=== PATIENT | female | born 1990 ===

== ENCOUNTER → 2021-03-21 | Outpatient (CLI) | payer MEDICARE, BC ==
[2021-03-22 02:20] LABS: African American GFR (CKD) 141.8 (60.0-200.0); Albumin 4.2 g/dL (3.80-4.90); Albumin/Globulin Ratio 1.45 (1.60-3.17); Anion Gap 10.5 mmol/L (4.00-12.00); Calcium 10.3 mg/dL (8.7-10.3); Carbon Dioxide 26.5 mmol/L (21.6-31.8); Globulin 2.9 g/dL (1.6-3.3); Non-African American GFR(CKD) 122.3 (60.0-200.0); Potassium 5.1 mmol/L (3.5-5.5); Total Bilirubin 0.2 mg/dL (0.2-1.2); Total Protein 7.1 g/dL (6.2-8.2)
== END | disposition home or self-care (01) ==
LOC: LABWHC1 16:05
PROVIDERS: ATTEND Internal Medicine Gastroenterology
DX: K51.80 Other ulcerative colitis without complications (principal); R10.33 Periumbilical pain; K52.9 Noninfective gastroenteritis and colitis, unspecified; K62.5 Hemorrhage of anus and rectum; Z93.0 Tracheostomy status
CPT/HCPCS: 36415; 80053

== ENCOUNTER → 2021-04-11 | Outpatient (CLI) | payer MEDICARE, BC ==
[2021-04-11 15:55] LABS: HCT 40.4 % (37.2-46.3); HGB 12.4 g/dL (12.0-15.0); MCH 29.6 pg (27.0-32.0); MCHC 30.7 g/dL (32.0-37.0); MCV 96.4 fL (80.0-97.0); Mean Platelet Volume 10.9 fL (9.5-12.2); Platelet Count 516 X 10*3/uL (140-440); RBC 4.19 X 10*6/uL (4.10-5.20); RDW 14.1 % (11.5-14.5); WBC 17.01 X 10*3/uL (4.50-10.00)
[2021-04-11 18:55] LABS: % Iron Saturation 12.9 (12.00-45.00)
[2021-04-11 19:12] LABS: Ferritin 644.3 ng/mL (10.0-291.0)
== END | disposition home or self-care (01) ==
LOC: LABWHC1 08:54 → EEVIPCON 08:54
PROVIDERS: ATTEND Internal Medicine Gastroenterology
DX: K51.80 Other ulcerative colitis without complications (principal); K62.5 Hemorrhage of anus and rectum; K52.9 Noninfective gastroenteritis and colitis, unspecified; R74.02 Elevation of levels of lactic acid dehydrogenase [LDH]
CPT/HCPCS: 36415; 82728; 83540; 83550; 85027

== ENCOUNTER 2021-04-13 13:34 | Inpatient (IN) | payer MEDICARE, BC ==
[2021-04-13] MEDS ORDERED: SODIUM CHLORIDE 0.9% 500 ML 500 ML IV STA (14:07)
[2021-04-13] MEDS ORDERED: ONDANSETRON 4 MG/2 ML VIAL IVP STA (14:07)
[2021-04-13] MEDS ORDERED: PANTOPRAZOLE 40 MG/10 ML VIAL IVP STA (14:07)
--- NOTE | 2021-04-13 14:11 | ED ---
General Adult HPI - General Chief complaint: Abdominal Pain Stated complaint: abd pain Time Seen by Provider: 04/13/21 13:59 Source: patient, family, RN notes reviewed, old records reviewed Mode of arrival: ambulatory Limitations: no limitations - History of Present Illness Initial comments: 31-year-old female history of ulcerative colitis presenting with vomiting, diarrhea. Diarrhea is bloody. She had previously been on Humira and a long steroid taper. Yesterday she her prednisone was increased to 40 mg after a teleconference with her gastrologist out of [place]. Patient denies significant abdominal pain. She's had 2 episodes of vomiting just prior to arrival. An she's had diarrhea ongoing for some time. No Fever. - Related Data Allergies Allergy/AdvReac Type Severity Reaction Status Date / Time No Known Allergies Allergy Verified 04/13/21 13:56 Review of Systems ROS Statement: Those systems with pertinent positive or pertinent negative responses have been documented in the HPI. ROS Other: All systems not noted in ROS Statement are negative. Past Medical History Past Medical History: GERD/Reflux Additional Past Medical History / Comment(s): genetic facial abnormalities. colitis,chronic diarrhea,rectal bleeding,aspartate aminotransferase History of Any Multi-Drug Resistant Organisms: None Reported Additional Past Surgical History / Comment(s): tracheostomy,facial surgery, eye surgery Past Psychological History: No Psychological Hx Reported Smoking Status: Never smoker Past Alcohol Use History: None Reported Past Drug Use History: None Reported General Exam Limitations: no limitations General appearance: alert, in no apparent distress Head exam: Present: atraumatic Eye exam: Present: other (Left eye status post exoneration) ENT exam: Present: mucous membranes dry Neck exam: Present: normal inspection. Absent: tenderness, meningismus Respiratory exam: Present: normal lung sounds bilaterally. Absent: respiratory distress, wheezes Cardiovascular Exam: Present: normal rhythm, tachycardia GI/Abdominal exam: Present: soft. Absent: distended, tenderness Extremities exam: Present: normal inspection, normal capillary refill. Absent: pedal edema Neurological exam: Present: alert Skin exam: Present: warm, dry, intact. Absent: cyanosis, diaphoretic Course Vital Signs 04/13/21 04/13/21 04/13/21 13:50 14:27 15:37 Temperature 98.2 F Pulse Rate 119 H 112 H 111 H Respiratory 20 18 18 Rate Blood Pressure 115/82 109/82 107/62 O2 Sat by Pulse 100 97 99 Oximetry 04/13/21 04/13/21 16:00 17:13 Temperature Pulse Rate 106 H 108 H Respiratory 18 18 Rate Blood Pressure 110/73 109/74 O2 Sat by Pulse 98 98 Oximetry Medical Decision Making - Medical Decision Making 31-year-old female with ulcerative colitis presenting with vomiting diarrhea, and rectal bleeding. Patient is hemodynamically stable. She has no abdominal tenderness on exam. She had been started on oral steroids yesterday. She's given a dose of Solu-Medrol in the emergency department as well as symptomatic relief. She has a mild leukocytosis, stable hemoglobin, lactic acid 2.5. She will be admitted for IV hydration and IV steroids. Case discussed with Panfilo, will admit with GI consulted. - Lab Data Result diagrams: 04/13/21 14:15 04/13/21 14:15 Lab Results 04/13/21 04/13/21 04/13/21 Range/Units 14:15 14:15 14:15 WBC 14.0 H (3.8-10.6) k/uL RBC 4.24 (3.80-5.40) m/uL Hgb 12.7 (11.4-16.0) gm/dL Hct 38.5 (34.0-46.0) % MCV 90.7 (80.0-100.0) fL MCH 29.9 (25.0-35.0) pg MCHC 32.9 (31.0-37.0) g/dL RDW 15.2 (11.5-15.5) % Plt Count 519 H (150-450) k/uL MPV 7.4 Neutrophils % 73 % Lymphocytes % 12 % Monocytes % 4 % Eosinophils % 10 % Basophils % 1 % Neutrophils # 10.1 H (1.3-7.7) k/uL Lymphocytes # 1.7 (1.0-4.8) k/uL Monocytes # 0.5 (0-1.0) k/uL Eosinophils # 1.4 H (0-0.7) k/uL Basophils # 0.1 (0-0.2) k/uL PT 10.3 (9.0-12.0) sec INR 1.0 (<1.2) APTT 23.1 (22.0-30.0) sec Sodium (137-145) mmol/L Potassium (3.5-5.1) mmol/L Chloride (98-107) mmol/L Carbon Dioxide (22-30) mmol/L Anion Gap mmol/L BUN (7-17) mg/dL Creatinine (0.52-1.04) mg/dL Est GFR (CKD-EPI)AfAm (>60 ml/min/1.73 sqM) Est GFR (CKD-EPI)NonAf (>60 ml/min/1.73 sqM) Glucose (74-99) mg/dL Lactic Ac Sepsis Rflx Plasma Lactic Acid Joe (0.7-2.0) mmol/L Calcium (8.4-10.2) mg/dL Total Bilirubin (0.2-1.3) mg/dL AST (14-36) U/L ALT (4-34) U/L Alkaline Phosphatase (38-126) U/L Total Protein (6.3-8.2) g/dL Albumin (3.5-5.0) g/dL Amylase (30-110) U/L Lipase (23-300) U/L Urine Color Dark Yellow Urine Appearance Cloudy H (Clear) Urine pH 6.0 (5.0-8.0) Ur Specific [place] 1.028 (1.001-1.035) Urine Protein 1+ H (Negative) Urine Glucose (UA) Negative (Negative) Urine Ketones Trace H (Negative) Urine Blood Large H (Negative) Urine Nitrite Negative (Negative) Urine Bilirubin Negative (Negative) Urine Urobilinogen <2.0 (<2.0) mg/dL Ur Leukocyte Esterase Negative (Negative) Urine RBC >182 H (0-5) /hpf Urine WBC 2 (0-5) /hpf Ur Squamous Epith Cells 6 H (0-4) /hpf Calcium Oxalate Crystal Occasional H (None) /hpf Urine Mucus Many H (None) /hpf Urine HCG, Qual (Not Detectd) 04/13/21 04/13/21 04/13/21 Range/Units 14:15 14:15 14:15 WBC (3.8-10.6) k/uL RBC (3.80-5.40) m/uL Hgb (11.4-16.0) gm/dL Hct (34.0-46.0) % MCV (80.0-100.0) fL MCH (25.0-35.0) pg MCHC (31.0-37.0) g/dL RDW (11.5-15.5) % Plt Count (150-450) k/uL MPV Neutrophils % % Lymphocytes % % Monocytes % % Eosinophils % % Basophils % % Neutrophils # (1.3-7.7) k/uL Lymphocytes # (1.0-4.8) k/uL Monocytes # (0-1.0) k/uL Eosinophils # (0-0.7) k/uL Basophils # (0-0.2) k/uL PT (9.0-12.0) sec INR (<1.2) APTT (22.0-30.0) sec Sodium 140 (137-145) mmol/L Potassium 3.6 (3.5-5.1) mmol/L Chloride 101 (98-107) mmol/L Carbon Dioxide 27 (22-30) mmol/L Anion Gap 12 mmol/L BUN 13 (7-17) mg/dL Creatinine 0.68 (0.52-1.04) mg/dL Est GFR (CKD-EPI)AfAm >90 (>60 ml/min/1.73 sqM) Est GFR (CKD-EPI)NonAf >90 (>60 ml/min/1.73 sqM) Glucose 117 H (74-99) mg/dL Lactic Ac Sepsis Rflx Plasma Lactic Acid Joe 2.5 H* (0.7-2.0) mmol/L Calcium 9.9 (8.4-10.2) mg/dL Total Bilirubin 0.3 (0.2-1.3) mg/dL AST 40 H (14-36) U/L ALT 28 (4-34) U/L Alkaline Phosphatase 94 (38-126) U/L Total Protein 8.1 (6.3-8.2) g/dL Albumin 4.4 (3.5-5.0) g/dL Amylase 88 (30-110) U/L Lipase 308 H (23-300) U/L Urine Color Urine Appearance (Clear) Urine pH (5.0-8.0) Ur Specific [place] (1.001-1.035) Urine Protein (Negative) Urine Glucose (UA) (Negative) Urine Ketones (Negative) Urine Blood (Negative) Urine Nitrite (Negative) Urine Bilirubin (Negative) Urine Urobilinogen (<2.0) mg/dL Ur Leukocyte Esterase (Negative) Urine RBC (0-5) /hpf Urine WBC (0-5) /hpf Ur Squamous Epith Cells (0-4) /hpf Calcium Oxalate Crystal (None) /hpf Urine Mucus (None) /hpf Urine HCG, Qual Not Detected (Not Detectd) 04/13/21 Range/Units 14:52 WBC (3.8-10.6) k/uL RBC (3.80-5.40) m/uL Hgb (11.4-16.0) gm/dL Hct (34.0-46.0) % MCV (80.0-100.0) fL MCH (25.0-35.0) pg MCHC (31.0-37.0) g/dL RDW (11.5-15.5) % Plt Count (150-450) k/uL MPV Neutrophils % % Lymphocytes % % Monocytes % % Eosinophils % % Basophils % % Neutrophils # (1.3-7.7) k/uL Lymphocytes # (1.0-4.8) k/uL Monocytes # (0-1.0) k/uL Eosinophils # (0-0.7) k/uL Basophils # (0-0.2) k/uL PT (9.0-12.0) sec INR (<1.2) APTT (22.0-30.0) sec Sodium (137-145) mmol/L Potassium (3.5-5.1) mmol/L Chloride (98-107) mmol/L Carbon Dioxide (22-30) mmol/L Anion Gap mmol/L BUN (7-17) mg/dL Creatinine (0.52-1.04) mg/dL Est GFR (CKD-EPI)AfAm (>60 ml/min/1.73 sqM) Est GFR (CKD-EPI)NonAf (>60 ml/min/1.73 sqM) Glucose (74-99) mg/dL Lactic Ac Sepsis Rflx Y Plasma Lactic Acid Joe (0.7-2.0) mmol/L Calcium (8.4-10.2) mg/dL Total Bilirubin (0.2-1.3) mg/dL AST (14-36) U/L ALT (4-34) U/L Alkaline Phosphatase (38-126) U/L Total Protein (6.3-8.2) g/dL Albumin (3.5-5.0) g/dL Amylase (30-110) U/L Lipase (23-300) U/L Urine Color Urine Appearance (Clear) Urine pH (5.0-8.0) Ur Specific [place] (1.001-1.035) Urine Protein (Negative) Urine Glucose (UA) (Negative) Urine Ketones (Negative) Urine Blood (Negative) Urine Nitrite (Negative) Urine Bilirubin (Negative) Urine Urobilinogen (<2.0) mg/dL Ur Leukocyte Esterase (Negative) Urine RBC (0-5) /hpf Urine WBC (0-5) /hpf Ur Squamous Epith Cells (0-4) /hpf Calcium Oxalate Crystal (None) /hpf Urine Mucus (None) /hpf Urine HCG, Qual (Not Detectd) Disposition Clinical Impression: Nausea & vomiting, Diarrhea, Ulcerative colitis Disposition: ADMITTED IP TO THIS [facility] Condition: Stable Is patient prescribed a controlled substance at d/c from ED?: No Referrals: Nonstaff,Physician [Primary Care Provider] - 1-2 days Decision to Admit Reason: Admit from EC Decision Date: 04/13/21 Decision Time: 17:17
[2021-04-13 14:27] LABS: Basophils # (A) 0.1 k/uL (0-0.2); Basophils % (A) 1 %; Eosinophils # (A) 1.4 k/uL (0-0.7); Eosinophils % (A) 10 %; HCT 38.5 % (34.0-46.0); HGB 12.7 gm/dL (11.4-16.0); Lymphocytes # (A) 1.7 k/uL (1.0-4.8); Lymphocytes % (A) 12 %; MCH 29.9 pg (25.0-35.0); MCHC 32.9 g/dL (31.0-37.0); MCV 90.7 fL (80.0-100.0); Mean Platelet Volume 7.4; Monocytes # (A) 0.5 k/uL (0-1.0); Monocytes % (A) 4 %; Neutrophils # (A) 10.1 k/uL (1.3-7.7); Neutrophils % (A) 73 %; Platelet Count 519 k/uL (150-450); RBC 4.24 m/uL (3.80-5.40); RDW 15.2 % (11.5-15.5)
[2021-04-13 14:35] LABS: Partial Thromboplastin Time 23.1 sec (22.0-30.0); Prothrombin Time 10.3 sec (9.0-12.0)
[2021-04-13 14:37] LABS: ALT 28 U/L (4-34); AST 40 U/L (14-36); African American GFR (CKD) >90 (>60 ml/min/1.73 sqM); Albumin 4.4 g/dL (3.5-5.0); Alkaline Phosphatase 94 U/L (38-126); Amylase 88 U/L (30-110); Anion Gap 12 mmol/L; Blood Urea Nitrogen 13 mg/dL (7-17); Calcium 9.9 mg/dL (8.4-10.2); Carbon Dioxide 27 mmol/L (22-30); Chloride 101 mmol/L (98-107); Glucose 117 mg/dL (74-99); Lipase 308 U/L (23-300); Non-African American GFR(CKD) >90 (>60 ml/min/1.73 sqM); Potassium 3.6 mmol/L (3.5-5.1); Sodium 140 mmol/L (137-145); Total Bilirubin 0.3 mg/dL (0.2-1.3); Total Protein 8.1 g/dL (6.3-8.2)
[2021-04-13] MEDS ORDERED: methylPREDNISolone SOD SUCCI 125 MG/2 ML VIAL IV STA (16:28)
[2021-04-13 16:49] LABS: Appearance,Urine Cloudy (Clear); Bilirubin,Urine Negative (Negative); Blood,Urine Large (Negative); Calcium Oxalate Crystals,Urine Occasional /hpf; Color,Urine Dark Yellow; Glucose,Urine (UA) Negative (Negative); Ketones,Urine Trace (Negative); Leukocyte Esterase,Urine Negative (Negative); Mucus,Urine Many /hpf; Nitrite,Urine Negative (Negative); Protein,Urine 1+ (Negative); RBC,Urine >182 /hpf (0-5); Specific Gravity,Urine 1.028 (1.001-1.035); Squamous Epithelial Cell,Urine 6 /hpf (0-4); Urobilinogen,Urine <2.0 mg/dL (<2.0); WBC,Urine 2 /hpf (0-5)
[2021-04-13] MEDS ORDERED: MORPHINE SULFATE 2 MG/ML SYRINGE IV PRN (17:12)
[2021-04-13] MEDS ORDERED: ONDANSETRON 4 MG/2 ML VIAL IVP PRN (17:12)
[2021-04-13] MEDS ORDERED: NALOXONE 0.4 MG/ML 1 ML VIAL IV PRN (17:12)
[2021-04-13] MEDS ORDERED: ACETAMINOPHEN TAB 325 MG TAB PO PRN (17:12)
[2021-04-13] MEDS: SODIUM CHLORIDE 0.9% 1,000 ML IV SCH (18:39)
[2021-04-13] MEDS: methylPREDNISolone SOD SUCCI 40 MG/ML 1 ML VIAL IV SCH (23:20)
[2021-04-14 05:43] LABS: ALT 26 U/L (4-34); AST 38 U/L (14-36); African American GFR (CKD) >90 (>60 ml/min/1.73 sqM); Albumin 3.6 g/dL (3.5-5.0); Alkaline Phosphatase 90 U/L (38-126); Anion Gap 7 mmol/L; Blood Urea Nitrogen 12 mg/dL (7-17); Calcium 9.2 mg/dL (8.4-10.2); Carbon Dioxide 24 mmol/L (22-30); Chloride 108 mmol/L (98-107); Glucose 121 mg/dL (74-99); Non-African American GFR(CKD) >90 (>60 ml/min/1.73 sqM); Potassium 4.8 mmol/L (3.5-5.1); Sodium 139 mmol/L (137-145); Total Bilirubin 0.2 mg/dL (0.2-1.3); Total Protein 6.9 g/dL (6.3-8.2)
[2021-04-14 06:05] LABS: Basophils % (A) 0 %; Eosinophils % (A) 0 %; HCT 33.1 % (34.0-46.0); HGB 10.8 gm/dL (11.4-16.0); Hypochromasia Slight; Lymphocytes % (A) 7 %; MCH 30.6 pg (25.0-35.0); MCHC 32.8 g/dL (31.0-37.0); MCV 93.3 fL (80.0-100.0); Mean Platelet Volume 7.6; Monocytes # (A) 0.2 k/uL (0-1.0); Monocytes % (A) 1 %; Neutrophils # (A) 12.9 k/uL (1.3-7.7); Neutrophils % (A) 91 %; Platelet Count 433 k/uL (150-450); RBC 3.55 m/uL (3.80-5.40); RDW 14.9 % (11.5-15.5); WBC 14.2 k/uL (3.8-10.6)
[2021-04-14] MEDS: methylPREDNISolone SOD SUCCI 40 MG/ML 1 ML VIAL IV SCH ×3 (07:27→23:38)
[2021-04-14] MEDS: SODIUM CHLORIDE 0.9% 1,000 ML IV SCH (12:29)
--- NOTE | 2021-04-14 12:42 | P.CONS ---
History of Present Illness - Reason for Consult Consult date: 04/14/21 Ulcerative colitis Requesting physician: Geovani Donohue - Chief Complaint Diarrhea, nausea and vomiting - History of Present Illness 31-year-old female with a medical history significant for multiple surgeries on the lower jaw and tracheostomy placement, and recent diagnosis of ulcerative colitis who presented with vomiting and diarrhea. The patient had been having symptoms of diarrhea since of last year. She underwent colonoscopy in [place] her primary residence in October and was diagnosed with ulcerative colitis. Her guardians are unsure of the extent the disease. The patient was started on Humira therapy in November which she is taking every 2 weeks. She was also given azathioprine was unable to tolerate it due to elevation in her liver enzymes. The patient has had ongoing symptoms since beginning of the year with the only improvement when she was on steroid therapy. Recently she had adalimumab levels drawn which were within normal range and with testing negative for antibodies to the drug. She denies having approximately 10 bowel movements daily with blood noted with the bowel movements. She has also been having some associated abdominal pain and developed vomiting prior to presentation. Laboratory evaluation significant for WBC 14.2, hemoglobin 10.8, platelet count 433,000, total bilirubin 0.2, alkaline phosphatase 90, AST 38 and ALT 26. Review of Systems REVIEW OF SYSTEMS: CONSTITUTIONAL: Denies any fevers, chills, weight change or fatigue. CARDIOVASCULAR: Denies any chest pain, palpitations high or low blood pressures RESPIRATORY: Denies any shortness of breath, hemoptysis or cough. GENITOURINARY: No dysuria or hematuria. MUSCULOSKELETAL: No weakness reported. SKIN: Denies any new rashes or lesions, jaundice or pallor. PSYCHIATRIC: Denies any depression or anxiety. NEUROLOGY: Denies headache, denies any new focal deficits. EARS/NOSE/THROAT: No recent hearing change, congestion, nasal discharge or sore throat, she does have a tracheostomy. EYES: No pain in eyes, discharge or change in vision. GASTROINTESTINAL: As per HPI. Past Medical History Past Medical History: GERD/Reflux Additional Past Medical History / Comment(s): genetic facial abnormalities. colitis,chronic diarrhea,rectal bleeding,aspartate aminotransferase History of Any Multi-Drug Resistant Organisms: None Reported Additional Past Surgical History / Comment(s): tracheostomy,facial surgery, eye surgery Past Anesthesia/Blood Transfusion Reactions: No Reported Reaction Past Psychological History: No Psychological Hx Reported Smoking Status: Never smoker Past Alcohol Use History: None Reported Past Drug Use History: None Reported - Past Family History Father Family Medical History: Unable to Obtain Medications and Allergies Home Medications Medication Instructions Recorded Confirmed Type Adalimumab [Humira Pen] 40 mg SQ Q14D 04/13/21 04/13/21 History predniSONE 40 mg PO DAILY 04/13/21 04/13/21 History Allergies Allergy/AdvReac Type Severity Reaction Status Date / Time No Known Allergies Allergy Verified 04/13/21 13:56 Physical Exam Vitals: Vital Signs Temp Pulse Pulse Resp BP BP Pulse Ox 04/14/21 07:38 97.4 F L 97 18 102/66 98 04/13/21 19:35 97.6 F 112 H 18 108/67 95 04/13/21 18:41 106 H 18 108/73 96 04/13/21 18:02 104 H 18 109/89 99 04/13/21 17:13 108 H 18 109/74 98 04/13/21 16:00 106 H 18 110/73 98 04/13/21 15:37 111 H 18 107/62 99 04/13/21 14:27 112 H 18 109/82 97 04/13/21 13:50 98.2 F 119 H 20 115/82 100 Intake and Output 04/13/21 04/14/21 04/14/21 22:59 06:59 14:59 Intake Total 600 240 Balance 600 240 Intake: Intake, IV Titration 600 Amount Sodium Chloride 0.9% 1, 600 000 ml @ 50 mls/hr IV . Q20H [facility] Rx#:[id number] Oral 240 Other: Voiding Method Toilet # Voids 1 # Bowel Movements 5 1 Weight 35.834 kg On physical examination, patient appears comfortable in no apparent distress. HEAD: Normocephalic, atraumatic. EYES: No scleral icterus. No conjunctival injection. MOUTH: No lesions, tongue midline, scarring from prior surgeries with limited movement of her lower jaw which is chronic. NECK: Trachea midline, no gross abnormalities, tracheostomy in place. CHEST: Clear to auscultation with no wheezing or rhonchi appreciated. HEART: Regular rate and rhythm. ABDOMEN: Soft, thin. Bowel sounds are positive. No organomegaly. No guarding or rigidity. EXTREMITIES: No pedal edema. SKIN: No rashes, no jaundice. NEUROLOGIC: Alert and oriented x3. No focal deficits. Results CBC & Chem 7: 04/14/21 04:54 04/14/21 04:54 Labs: Abnormal Lab Results - Last 24 Hours (Table) 04/13/21 04/13/21 04/13/21 Range/Units 14:15 14:15 14:15 WBC 14.0 H (3.8-10.6) k/uL RBC (3.80-5.40) m/uL Hgb (11.4-16.0) gm/dL Hct (34.0-46.0) % Plt Count 519 H (150-450) k/uL Neutrophils # 10.1 H (1.3-7.7) k/uL Eosinophils # 1.4 H (0-0.7) k/uL Chloride (98-107) mmol/L Glucose 117 H (74-99) mg/dL Plasma Lactic Acid Joe (0.7-2.0) mmol/L AST 40 H (14-36) U/L Lipase 308 H (23-300) U/L Urine Appearance Cloudy H (Clear) Urine Protein 1+ H (Negative) Urine Ketones Trace H (Negative) Urine Blood Large H (Negative) Urine RBC >182 H (0-5) /hpf Ur Squamous Epith Cells 6 H (0-4) /hpf Calcium Oxalate Crystal Occasional H (None) /hpf Urine Mucus Many H (None) /hpf 04/13/21 04/14/21 04/14/21 Range/Units 14:15 04:54 04:54 WBC 14.2 H (3.8-10.6) k/uL RBC 3.55 L (3.80-5.40) m/uL Hgb 10.8 L (11.4-16.0) gm/dL Hct 33.1 L (34.0-46.0) % Plt Count (150-450) k/uL Neutrophils # 12.9 H (1.3-7.7) k/uL Eosinophils # (0-0.7) k/uL Chloride 108 H (98-107) mmol/L Glucose 121 H (74-99) mg/dL Plasma Lactic Acid Joe 2.5 H* (0.7-2.0) mmol/L AST 38 H (14-36) U/L Lipase (23-300) U/L Urine Appearance (Clear) Urine Protein (Negative) Urine Ketones (Negative) Urine Blood (Negative) Urine RBC (0-5) /hpf Ur Squamous Epith Cells (0-4) /hpf Calcium Oxalate Crystal (None) /hpf Urine Mucus (None) /hpf Assessment and Plan (1) Ulcerative colitis Narrative/Plan: 31-year-old female with a diagnosis of ulcerative colitis earlier in the year who has had continued symptoms since that time in spite of therapy with Humira. Blood levels were drawn which showed adequate Humira levels and with an absence of antibodies. Previously she was also started on amino modulator therapy but unable to tolerate due to elevated liver enzymes. Only improvement has been on steroid therapy. Unclear etiology, suspicion is for drug failure/nonresponder to Humira, testing for Clostridium difficile ordered and pending. Current Visit: Yes Status: Acute Code(s): K51.90 - ULCERATIVE COLITIS, UNSPECIFIED, WITHOUT COMPLICATIONS SNOMED Code(s): 36833922 (2) Diarrhea Current Visit: Yes Status: Acute Code(s): R19.7 - DIARRHEA, UNSPECIFIED SNOMED Code(s): 83035381 (3) Nausea & vomiting Current Visit: Yes Status: Acute Code(s): R11.2 - NAUSEA WITH VOMITING, UNSPECIFIED SNOMED Code(s): 56463184 Plan: Supportive care Okay for modified diet as tolerated ESR and CRP ordered Continue to monitor CBC, BMP Continue Solu-Medrol 20 mg every 8 hours Patient will likely need to be discharged on an extended tapering dose of steroid therapy, with consideration for transition to alternate biologic therapy, with recommendation that she follows up with her primary sports apparel internship to discuss these matters after discharge Testing for Clostridium difficile pending Thank you for allowing us to participate in the care of the patient
[2021-04-14] MEDS: SODIUM FERRIC GLUCONAT-SUCROSE 125 MG in SODIUM CHLORIDE 0.9% 100 ML IVPB SCH (13:14)
--- NOTE | 2021-04-14 16:35 | P.HPIM ---
History of Present Illness H&P Date: 04/14/21 Chief Complaint: Abdominal pain, Vomiting and bloody diarrhea Ms. Collado is a 31-year-old female with a past medical history of genetic facial abnormalities, ulcerative colitis with chronic diarrhea, tracheostomy in place coming into the hospital with a chief complaint of abdominal pain nausea vomiting and bloody diarrhea. Patient has been diagnosed with ulcerative colit is with a colonoscopy done in [place] in October. They came here as this their summer vacation house. She reports that she started to have abdominal pain nausea and bloody diarrhea that has been worsening over the past 2 weeks. She is being managed on Humira and recently increased the dose of her prednisone. Patient states in spite of all of these changes in her medications she still continued to have bloody diarrhea along with nausea and vomiting. In the ER at the time of admission temperature 98.2, heart rate 119, respiratory 20, blood pressure 1:15/82, saturating at 100% on room air. On reviewing her labs white count of 14.2, hemoglobin 10.8, platelets 433. Sodium 139, potassium 4.8, chloride 108, bicarbonate 24, BUN 12, creatinine 0.54. Lactic acid 2.5. Urine analysis negative for leukocyte esterase and nitrites. Review of Systems REVIEW OF SYSTEMS: CONSTITUTIONAL: No fever, no malaise, no fatigue. HEENT: No headache, no neck stiffness, no blurring of vision CARDIOVASCULAR: No chest pain or palpitations. PULMONARY: No cough or difficulty in breathing GASTROINTESTINAL: As per HPI NEUROLOGICAL: No weakness of extremities HEMATOLOGICAL: Denies any bleeding or petechiae. GENITOURINARY: Denies any burning micturition, frequency, or urgency. MUSCULOSKELETAL/RHEUMATOLOGICAL: Denies any joint pain, swelling, or any muscle pain. ENDOCRINE: Denies polyuria polydipsia or heat or cold intolerance The rest of the 14-point review of systems is negative. Past Medical History Past Medical History: GERD/Reflux Additional Past Medical History / Comment(s): genetic facial abnormalities. colitis,chronic diarrhea,rectal bleeding,aspartate aminotransferase History of Any Multi-Drug Resistant Organisms: None Reported Additional Past Surgical History / Comment(s): tracheostomy,facial surgery, eye surgery Past Anesthesia/Blood Transfusion Reactions: No Reported Reaction Past Psychological History: No Psychological Hx Reported Smoking Status: Never smoker Past Alcohol Use History: None Reported Past Drug Use History: None Reported - Past Family History Father Family Medical History: Unable to Obtain Medications and Allergies Home Medications Medication Instructions Recorded Confirmed Type Adalimumab [Humira Pen] 40 mg SQ Q14D 04/13/21 04/13/21 History predniSONE 40 mg PO DAILY 04/13/21 04/13/21 History Allergies Allergy/AdvReac Type Severity Reaction Status Date / Time No Known Allergies Allergy Verified 04/13/21 13:56 Physical Exam Vitals: Vital Signs Temp Pulse Pulse Resp BP BP Pulse Ox 04/14/21 07:38 97.4 F L 97 18 102/66 98 04/13/21 19:35 97.6 F 112 H 18 108/67 95 04/13/21 18:41 106 H 18 108/73 96 04/13/21 18:02 104 H 18 109/89 99 04/13/21 17:13 108 H 18 109/74 98 04/13/21 16:00 106 H 18 110/73 98 04/13/21 15:37 111 H 18 107/62 99 04/13/21 14:27 112 H 18 109/82 97 04/13/21 13:50 98.2 F 119 H 20 115/82 100 Intake and Output 04/13/21 04/14/21 04/14/21 22:59 06:59 14:59 Intake Total 600 240 Balance 600 240 Intake: Intake, IV Titration 600 Amount Sodium Chloride 0.9% 1, 600 000 ml @ 50 mls/hr IV . Q20H [facility] Rx#:[id number] Oral 240 Other: Voiding Method Toilet # Voids 1 # Bowel Movements 5 1 Weight 35.834 kg PHYSICAL EXAMINATION: GENERAL: Comfortably sitting up in the bed appears to be no acute distress. HEENT: Pupils are round and equally reacting to light. EOMI. No scleral icterus. No conjunctival pallor. Tracheostomy in place site looks clean and dry, facial abnormality. CARDIOVASCULAR: S1 and S2 present. Tachycardia PULMONARY: Bilateral breath sounds positive. No wheeze or crackles.. ABDOMEN: Soft, hyperactive bowel sounds. No guarding or rigidity. Positive for mild tenderness in all quadrants. MUSCULOSKELETAL: No joint swelling or deformity. EXTREMITIES: No edema NEUROLOGICAL: Gross neurological examination did not reveal any focal deficits. SKIN:No rash Results CBC & Chem 7: 04/14/21 04:54 04/14/21 04:54 Labs: Abnormal Lab Results - Last 24 Hours (Table) 04/13/21 04/13/21 04/13/21 Range/Units 14:15 14:15 14:15 WBC 14.0 H (3.8-10.6) k/uL RBC (3.80-5.40) m/uL Hgb (11.4-16.0) gm/dL Hct (34.0-46.0) % Plt Count 519 H (150-450) k/uL Neutrophils # 10.1 H (1.3-7.7) k/uL Eosinophils # 1.4 H (0-0.7) k/uL Chloride (98-107) mmol/L Glucose 117 H (74-99) mg/dL Plasma Lactic Acid Joe (0.7-2.0) mmol/L AST 40 H (14-36) U/L Lipase 308 H (23-300) U/L Urine Appearance Cloudy H (Clear) Urine Protein 1+ H (Negative) Urine Ketones Trace H (Negative) Urine Blood Large H (Negative) Urine RBC >182 H (0-5) /hpf Ur Squamous Epith Cells 6 H (0-4) /hpf Calcium Oxalate Crystal Occasional H (None) /hpf Urine Mucus Many H (None) /hpf 04/13/21 04/14/21 04/14/21 Range/Units 14:15 04:54 04:54 WBC 14.2 H (3.8-10.6) k/uL RBC 3.55 L (3.80-5.40) m/uL Hgb 10.8 L (11.4-16.0) gm/dL Hct 33.1 L (34.0-46.0) % Plt Count (150-450) k/uL Neutrophils # 12.9 H (1.3-7.7) k/uL Eosinophils # (0-0.7) k/uL Chloride 108 H (98-107) mmol/L Glucose 121 H (74-99) mg/dL Plasma Lactic Acid Joe 2.5 H* (0.7-2.0) mmol/L AST 38 H (14-36) U/L Lipase (23-300) U/L Urine Appearance (Clear) Urine Protein (Negative) Urine Ketones (Negative) Urine Blood (Negative) Urine RBC (0-5) /hpf Ur Squamous Epith Cells (0-4) /hpf Calcium Oxalate Crystal (None) /hpf Urine Mucus (None) /hpf Thrombosis Risk Factor Assmnt - Choose All That Apply Any of the Below Risk Factors Present?: No Other Risk Factors: No Other congenital or acquired thrombophilia - If yes, enter type in comment: No Thrombosis Risk Factor Assessment Level: Very Low Risk Assessment and Plan Assessment: ASSESSMENT Nausea, vomiting, abdominal pain with bloody diarrhea- could be secondary to exacerbation of ulcerative colitis History of ulcerative colitis on Humira Genetic facial abnormality Tracheostomy in place Anemia-possibly secondary to bloody diarrhea Lactic acidosis- secondary to dehydration PLAN: Patient has been started on IV fluids, symptomatic management with antiemetics. Lactic acid trending down. C. diff has been ordered and negative. Continue with Solu-Medrol. GI has been consulted for further management. Further recommendations to follow depending on the progress of the patient.
[2021-04-14] MEDS: PANTOPRAZOLE 40 MG TABLET PO SCH (17:21)
[2021-04-15 05:34] LABS: Basophils % (A) 0 %; Eosinophils % (A) 0 %; HCT 32.1 % (34.0-46.0); HGB 10.6 gm/dL (11.4-16.0); Hypochromasia Slight; Lymphocytes # (A) 1.4 k/uL (1.0-4.8); Lymphocytes % (A) 8 %; MCH 30.8 pg (25.0-35.0); MCV 93.2 fL (80.0-100.0); Mean Platelet Volume 7.7; Monocytes # (A) 0.4 k/uL (0-1.0); Monocytes % (A) 2 %; Neutrophils # (A) 15.9 k/uL (1.3-7.7); Neutrophils % (A) 89 %; Platelet Count 419 k/uL (150-450); RBC 3.45 m/uL (3.80-5.40); WBC 17.8 k/uL (3.8-10.6)
[2021-04-15 05:47] LABS: African American GFR (CKD) >90 (>60 ml/min/1.73 sqM); Anion Gap 6 mmol/L; Blood Urea Nitrogen 10 mg/dL (7-17); C Reactive Protein 1.7 mg/dL (<1.0); Calcium 8.7 mg/dL (8.4-10.2); Carbon Dioxide 24 mmol/L (22-30); Chloride 108 mmol/L (98-107); Glucose 109 mg/dL (74-99); Non-African American GFR(CKD) >90 (>60 ml/min/1.73 sqM); Potassium 4.5 mmol/L (3.5-5.1); Sodium 138 mmol/L (137-145)
[2021-04-15 06:25] LABS: Erythrocyte Sedimentation Rate 43 mm/hr (0-20)
[2021-04-15] MEDS: SODIUM FERRIC GLUCONAT-SUCROSE 125 MG in SODIUM CHLORIDE 0.9% 100 ML IVPB SCH (07:37)
[2021-04-15] MEDS: methylPREDNISolone SOD SUCCI 40 MG/ML 1 ML VIAL IV SCH ×3 (07:38→23:54)
[2021-04-15] MEDS: SODIUM CHLORIDE 0.9% 1,000 ML IV SCH (07:38)
[2021-04-15] MEDS: PANTOPRAZOLE 40 MG TABLET PO SCH (07:38)
[2021-04-15 13:05] VITALS: BMI 16.5
--- NOTE | 2021-04-15 15:59 | P.PN ---
Subjective Progress Note Date: 04/15/21 Principal diagnosis: exacerbation of ulcerative colitis Ms. Collado is a 31-year-old female with a past medical history of genetic facial abnormalities, ulcerative colitis with chronic diarrhea, tracheostomy in place coming into the hospital with a chief complaint of abdominal pain nausea vomiting and bloody diarrhea. Patient has been diagnosed with ulcerative colitis with a colonoscopy done in [place] in October. They came here as this their summer vacation house. She reports that she started to have abdominal pain nausea and bloody diarrhea that has been worsening over the past 2 weeks. She is being managed on Humira and recently increased the dose of her prednisone. Patient states in spite of all of these changes in her medications she still continued to have bloody diarrhea along with nausea and vomiting. In the ER at the time of admission temperature 98.2, heart rate 119, respiratory 20, blood pressure 115/82, saturating at 100% on room air. On reviewing her labs white count of 14.2, hemoglobin 10.8, platelets 433. Sodium 139, potassium 4.8, chloride 108, bicarbonate 24, BUN 12, creatinine 0.54. Lactic acid 2.5. Urine analysis negative for leukocyte esterase and nitrites. On 04/15/2021- patient is seen and examined today. Discomfort of his lipid history. Acute distress. Patient's mother at the bedside. As per discussion with the nursing staff patient had 4-5 bowel movements last night and 2-3 bowel movements since this morning. No blood in the stools. She states that the cyst had usual bowel pattern. Patient denies having any abdominal pain nausea or vomiting. She is trying to drink boost supplements. Patient denies having any fevers chills or rigors. No chest pain or palpitations. No cough or difficulty in breathing. On reviewing the patient's vitals temperature 98.1, heart rate 83, respiratory rate 18, blood pressure 108/68, saturating at 97% on room air. On reviewing the labs from this morning white count of 17.8, hemoglobin 10.6, platelets 419. Sodium 138, potassium 4.5, chloride 100, bicarbonate 24. BUN 10 and creatinine 0.52. CRP is 1.7. C. diff negative. Active Medications Acetaminophen (Acetaminophen Tab 325 Mg Tab) 650 mg PO Q6HR PRN PRN Reason: Mild Pain or Fever > 100.5 Sodium Chloride (Saline 0.9%) 1,000 mls @ 50 mls/hr IV .Q20H [facility] Last Admin: 04/15/21 07:38 Dose: 50 mls/hr Documented by: Methylprednisolone Sodium Succinate (Methylprednisolone Sod Succi 40 Mg/Ml 1 Ml Vial) 20 mg IV Q8HR [facility] Last Admin: 04/15/21 15:52 Dose: 20 mg Documented by: Morphine Sulfate (Morphine Sulfate 2 Mg/Ml Syringe) 2 mg IV Q4HR PRN PRN Reason: Severe Pain Naloxone HCl (Naloxone 0.4 Mg/Ml 1 Ml Vial) 0.2 mg IV Q2M PRN PRN Reason: Opioid Reversal Ondansetron HCl (Ondansetron 4 Mg/2 Ml Vial) 4 mg IVP Q8HR PRN PRN Reason: Nausea And Vomiting Last Admin: 04/14/21 10:49 Dose: 4 mg Documented by: Pantoprazole Sodium (Pantoprazole 40 Mg Tablet) 40 mg PO AC-[id number] [facility] Last Admin: 04/15/21 07:38 Dose: 40 mg Documented by: Objective - Vital Signs Vital signs: Vital Signs Temp 98.1 F 04/15/21 07:47 Pulse 83 04/15/21 07:47 Resp 18 04/15/21 07:47 BP 108/68 04/15/21 07:47 Pulse Ox 97 04/15/21 07:47 Intake & Output 04/14/21 04/15/21 04/15/21 18:59 06:59 18:59 Intake Total 480 490 Balance 480 490 Intake: Intake, IV Titration 100 Amount Sodium Ferric Gluconat- 100 Sucrose 125 mg In Sodium Chloride 0.9% 100 ml @ 100 mls/hr IVPB DAILY [facility] Rx#:[id number] Oral 480 390 Other: # Voids 1 1 2 # Bowel Movements 1 1 2 # Emeses 1 - Exam PHYSICAL EXAMINATION: GENERAL: Comfortably sitting up in the bed appears to be no acute distress. HEENT: Pupils are round and equally reacting to light. EOMI. No scleral icterus. No conjunctival pallor. Tracheostomy in place site looks clean and dry, facial abnormality. CARDIOVASCULAR: S1 and S2 present. Tachycardia PULMONARY: Bilateral breath sounds positive. No wheeze or crackles.. ABDOMEN: Soft, hyperactive bowel sounds. No guarding or rigidity. Positive for mild tenderness in all quadrants. MUSCULOSKELETAL: No joint swelling or deformity. EXTREMITIES: No edema NEUROLOGICAL: Gross neurological examination did not reveal any focal deficits. SKIN:No rash - Labs CBC & Chem 7: 04/15/21 05:08 04/15/21 05:08 Labs: Abnormal Lab Results - Last 24 Hours (Table) 04/15/21 04/15/21 Range/Units 05:08 05:08 WBC 17.8 H (3.8-10.6) k/uL RBC 3.45 L (3.80-5.40) m/uL Hgb 10.6 L (11.4-16.0) gm/dL Hct 32.1 L (34.0-46.0) % Neutrophils # 15.9 H (1.3-7.7) k/uL ESR 43 H (0-20) mm/hr Chloride 108 H (98-107) mmol/L Glucose 109 H (74-99) mg/dL C-Reactive Protein 1.7 H (<1.0) mg/dL Microbiology - Last 24 Hours (Table) 04/14/21 08:21 Blood Culture - Preliminary Blood No Growth after 24 hours Assessment and Plan Assessment: ASSESSMENT Exacerbation of ulcerative colitis History of ulcerative colitis on Humira Genetic facial abnormality Tracheostomy in place Anemia-possibly secondary to bloody diarrhea Lactic acidosis- secondary to dehydration PLAN: Patient with improving symptomatically. Her diarrhea is improving. She is able to tolerate by mouth. Continue with Solu-Medrol and symptomatic management of her nausea and vomiting with antiemetics. C. diff has been negative. GI has been consulted and following the patient. Patient has genetic facial abnormality, we'll consult speech for assisting in better by mouth intake. Patient received IV iron therapy , second dose today Further recommendations to follow depending on the progress of the patient. Treatment plan discussed in detail with patient's mother at bedside.
--- NOTE | 2021-04-15 16:14 | P.PN ---
Subjective Progress Note Date: 04/15/21 Principal diagnosis: Vomiting, diarrhea She was seen and examined lying in bed. She states her diarrhea has improved significantly. She had 4-5 small loose bowel movements through the evening, with brown in color and some pink tinge with wiping. Still has some nausea, no vomiting or abdominal pain. She's been afebrile. Tolerating clear liquids. Patient's mother at the bedside states she only takes Ensure or boost 3 times a day and eats yogurt for her nutrition. Objective - Vital Signs Vital signs: Vital Signs Temp 98.1 F 04/15/21 07:47 Pulse 83 04/15/21 07:47 Resp 18 04/15/21 07:47 BP 108/68 04/15/21 07:47 Pulse Ox 97 04/15/21 07:47 Intake & Output 04/14/21 04/15/21 04/15/21 18:59 06:59 18:59 Intake Total 480 240 Balance 480 240 Intake: Oral 480 240 Other: # Voids 1 1 1 # Bowel Movements 1 1 1 # Emeses 1 - Exam General appearance: The patient is alert, oriented, appears in no acute distress. HET: Head is normocephalic and atraumatic. Conjunctiva pink. Sclera anicteric. Neck: Supple without lymphadenopathy. Abdomen: Soft, nontender, nondistended with bowel sounds. No guarding or rigidity. Extremities: Normal skin color and turgor. No pedal edema Skin: No rashes, no jaundice Neurological: No focal deficits. Alert and oriented 3. - Labs CBC & Chem 7: 04/15/21 05:08 04/15/21 05:08 Labs: Abnormal Lab Results - Last 24 Hours (Table) 04/15/21 04/15/21 Range/Units 05:08 05:08 WBC 17.8 H (3.8-10.6) k/uL RBC 3.45 L (3.80-5.40) m/uL Hgb 10.6 L (11.4-16.0) gm/dL Hct 32.1 L (34.0-46.0) % Neutrophils # 15.9 H (1.3-7.7) k/uL ESR 43 H (0-20) mm/hr Chloride 108 H (98-107) mmol/L Glucose 109 H (74-99) mg/dL C-Reactive Protein 1.7 H (<1.0) mg/dL Assessment and Plan (1) Ulcerative colitis Narrative/Plan: 31-year-old female with a diagnosis of ulcerative colitis earlier in the year who has had continued symptoms since that time in spite of therapy with Humira. Blood levels were drawn which showed adequate Humira levels and with an absence of antibodies. Previously she was also started on amino modulator therapy but unable to tolerate due to elevated liver enzymes. Only improvement has been on steroid therapy. Unclear etiology, suspicion is for drug failure/nonresponder to Humira, testing for Clostridium difficile ordered and negative. Current Visit: Yes Status: Acute Code(s): K51.90 - ULCERATIVE COLITIS, UNSPECIFIED, WITHOUT COMPLICATIONS SNOMED Code(s): 19016577 (2) Diarrhea Current Visit: Yes Status: Acute Code(s): R19.7 - DIARRHEA, UNSPECIFIED SNOMED Code(s): 52348479 (3) Nausea & vomiting Current Visit: Yes Status: Acute Code(s): R11.2 - NAUSEA WITH VOMITING, UNSPECIFIED SNOMED Code(s): 15637681 Plan: 1. Advance to diet as tolerated, patient requesting strawberry and vanilla Ensure and yogurt 2. Continue antiemetics as needed 3. Continue Solu-Medrol 20 mg IV every 8 hours, will transition to oral prednisone 40 mg in the morning 4. Repeat ESR and CRP 5. Patient will need to be discharged home on prolonged tapering dose of steroids, recommend starting 40 mg and going down by 10 mg every 2 weeks. She will also need to follow-up with her primary cash office worker to discuss further management after discharge. Thank you for this consultation, we will continue to follow. Dr. Yañez I agree with the dictator's note, documented as a scribe by Saumya Luis.
[2021-04-16] MEDS: SODIUM CHLORIDE 0.9% 1,000 ML IV SCH (02:13)
[2021-04-16 02:33] VITALS: TEMP 97.7
[2021-04-16] MEDS: PANTOPRAZOLE 40 MG TABLET PO SCH (05:56)
[2021-04-16 08:33] VITALS: BP 116/73; PULSE 75; RESP 16
--- NOTE | 2021-04-16 08:50 | P.PN ---
Subjective Progress Note Date: 04/16/21 Principal diagnosis: Vomiting, diarrhea Patient seen and examined lying in bed. States she had 6 episodes of small amounts of loose brown stool, nonbloody. Denies any abdominal pain, nausea, or vomiting. She is tolerating her diet of yogurt and ensure. She was transitioned to oral prednisone 40 mg this morning. Patient needs 5 mg tablets as that is what she is able to swallow. Objective - Vital Signs Vital signs: Vital Signs Temp 97.7 F 04/16/21 02:00 Pulse 75 04/16/21 08:15 Resp 16 04/16/21 08:15 BP 116/73 04/16/21 08:15 Pulse Ox 98 04/16/21 08:15 Intake & Output 04/15/21 04/16/21 04/16/21 18:59 06:59 18:59 Intake Total 850 650 120 Balance 850 650 120 Weight 35.834 kg Intake: Intake, IV Titration 100 500 Amount Sodium Chloride 0.9% 1, 500 000 ml @ 50 mls/hr IV . Q20H [facility] Rx#:[id number] Sodium Ferric Gluconat- 100 Sucrose 125 mg In Sodium Chloride 0.9% 100 ml @ 100 mls/hr IVPB DAILY [facility] Rx#:[id number] Oral 750 150 120 Other: # Voids 1 1 # Bowel Movements 1 1 - Exam General appearance: The patient is alert, oriented, appears in no acute distress. HET: Head is normocephalic and atraumatic. Conjunctiva pink. Sclera anicteric. Neck: Supple without lymphadenopathy. Abdomen: Soft, thin, nontender, nondistended with bowel sounds. No guarding or rigidity. Extremities: Normal skin color and turgor. No pedal edema Skin: No rashes, no jaundice Neurological: No focal deficits. Alert and oriented 3. - Labs CBC & Chem 7: 04/15/21 05:08 04/15/21 05:08 Labs: Microbiology - Last 24 Hours (Table) 04/14/21 08:21 Blood Culture - Preliminary Blood No Growth after 24 hours Assessment and Plan (1) Ulcerative colitis Narrative/Plan: 31-year-old female with a diagnosis of ulcerative colitis earlier in the year who has had continued symptoms since that time in spite of therapy with Humira. Blood levels were drawn which showed adequate Humira levels and with an absence of antibodies. Previously she was also started on amino modulator therapy but unable to tolerate due to elevated liver enzymes. Only improvement has been on steroid therapy. Unclear etiology, suspicion is for drug failure/nonresponder to Humira, testing for Clostridium difficile ordered and negative. Abdominal pain improved, bloody diarrhea improved, patient has transition to oral prednisone and is tolerating a full liquid diet. Current Visit: Yes Status: Acute Code(s): K51.90 - ULCERATIVE COLITIS, UNSPECIFIED, WITHOUT COMPLICATIONS SNOMED Code(s): 52174672 (2) Diarrhea Current Visit: Yes Status: Acute Code(s): R19.7 - DIARRHEA, UNSPECIFIED SNOMED Code(s): 56206966 (3) Nausea & vomiting Current Visit: Yes Status: Acute Code(s): R11.2 - NAUSEA WITH VOMITING, UNSPECIFIED SNOMED Code(s): 98350994 Plan: 1. Advance to diet as tolerated, patient requesting strawberry and vanilla Ensure and yogurt 2. Continue antiemetics as needed 3. Prednisone 40 mg by mouth daily 4. Repeat ESR and CRP 5. Patient will need to be discharged home on prolonged tapering dose of steroids, recommend starting 40 mg and going down by 10 mg every 2 weeks. She will also need to follow-up with her primary teller supervisor to discuss further management after discharge. Thank you for this consultation, we will continue to follow. Dr. Yañez I agree with the dictator's note, documented as a scribe by Saumya Luis.
[2021-04-16] MEDS ORDERED: predniSONE 5 MG TAB PO SCH (09:00)
[2021-04-16] MEDS ORDERED: predniSONE 20 MG TAB PO SCH (09:00)
--- NOTE | 2021-04-17 00:50 | P.DS ---
Providers Date of admission: 04/13/21 17:12 Expected date of discharge: 04/16/21 Attending physician: Geovani Donohue Consults: 04/13/21 17:13 Consult Physician Routine Consulting Provider: Tulio Yañez Consult Reason/Comments: UC Do you want consulting provider notified?: Yes Primary care physician: Physician Nonstaff Hospital Course: Ms. Collado is a 31-year-old female with a past medical history of genetic facial abnormalities, ulcerative colitis with chronic diarrhea, tracheostomy in place coming into the hospital with a chief complaint of abdominal pain nausea vomiting and bloody diarrhea. Patient has been diagnosed with ulcerative colitis with a colonoscopy done in [place] in October. They came here as this their summer vacation house. She reports that she started to have abdominal pain nausea and bloody diarrhea that has been worsening over the past 2 weeks. She is being managed on Humira and recently increased the dose of her prednisone. Patient states in spite of all of these changes in her medications she still continued to have bloody diarrhea along with nausea and vomiting. In the ER at the time of admission temperature 98.2, heart rate 119, respiratory 20, blood pressure 115/82, saturating at 100% on room air. On reviewing her labs white count of 14.2, hemoglobin 10.8, platelets 433. Sodium 139, potassium 4.8, chloride 108, bicarbonate 24, BUN 12, creatinine 0.54. Lactic acid 2.5. Urine analysis negative for leukocyte esterase and nitrites Hospital course - Patient with improving symptomatically with IV steroids. Her diarrhea, abdominal pain improved and able to tolerate orally. C. diff has been negative. Patient received IV iron therapy. GI followed her and advised to discharge on tapering dose of prednisone. Vital Signs - 24 hr 04/16/21 04/16/21 02:00 08:15 Temperature 97.7 F Pulse Rate [ 92 75 Pulse Oximetery ] Respiratory 18 16 Rate Blood Pressure 117/79 116/73 [Right Arm] O2 Sat by Pulse 98 98 Oximetry PHYSICAL EXAMINATION: GENERAL: Comfortably sitting up in the bed appears to be no acute distress. HEENT: Pupils are round and equally reacting to light. EOMI. No scleral icterus. No conjunctival pallor. Tracheostomy in place site looks clean and dry, facial abnormality. CARDIOVASCULAR: S1 and S2 present. Tachycardia PULMONARY: Bilateral breath sounds positive. No wheeze or crackles. ABDOMEN: Soft, hyperactive bowel sounds. No guarding or rigidity. MUSCULOSKELETAL: No joint swelling or deformity. EXTREMITIES: No edema DISCHARGE DIAGNOSIS Nausea, vomiting, abdominal pain with bloody diarrhea- could be secondary to exacerbation of ulcerative colitis History of ulcerative colitis on Humira Genetic facial abnormality Tracheostomy in place Anemia-possibly secondary to bloody diarrhea Lactic acidosis- secondary to dehydration Follow up - advised follow up with PCP and GI. Her father mentions that they would like to follow up with their primary GI in [place] . Patient Condition at Discharge: Stable Plan - Discharge Summary Discharge Rx Participant: No New Discharge Prescriptions: New RX: predniSONE 40 mg PO DAILY #280 tab Continue RX: Adalimumab [Humira(Cf) Pen] 40 mg SQ Q14D Discontinued RX: predniSONE 40 mg PO DAILY Discharge Medication List RX: Adalimumab [Humira(Cf) Pen] 40 mg SQ Q14D 04/13/21 [History] RX: predniSONE 40 mg PO DAILY #280 tab 04/16/21 [Rx] Follow up Appointment(s)/Referral(s): Nonstaff,Physician [Primary Care Provider] - 1-2 days Tulio Yañez MD [STAFF PHYSICIAN] - As Needed Discharge Disposition: HOME SELF-CARE
== END 2021-04-16 11:57 | disposition home or self-care (01) | DRG 386 ==
LOC: EC 13:34 → 6PED 17:12
PROVIDERS: ADMIT Hospitalist; ATTEND Hospitalist
DX: K51.911 Ulcerative colitis, unspecified with rectal bleeding (principal); E87.2 Acidosis; Z93.0 Tracheostomy status; E86.0 Dehydration; D72.829 Elevated white blood cell count, unspecified; D64.9 Anemia, unspecified; Z79.52 Long term (current) use of systemic steroids; K21.9 Gastro-esophageal reflux disease without esophagitis; K52.9 Noninfective gastroenteritis and colitis, unspecified; Z79.899 Other long term (current) drug therapy
CPT/HCPCS: 36415; 80048; 80053; 80145; 81001; 81025; 82150; 82397; 82728; 83540; 83550; 83605; 83690; 85025; 85027; 85610; 85652; 85730; 86140; 86850; 86900; 86901; 87040; 87324; 96361; 96374; 96375; 99284

== ENCOUNTER 2021-04-19 | Emergency (ER) | payer MEDICARE, BC | END 2021-04-19 14:04 | disposition home or self-care (01) | DX: K92.2 Gastrointestinal hemorrhage, unspecified (principal) ==

== ENCOUNTER → 2021-05-19 | Outpatient (CLI) | payer MEDICARE, BC ==
[2021-05-19 11:04] LABS: HCT 43.8 % (37.2-46.3); HGB 13.7 g/dL (12.0-15.0); MCHC 31.3 g/dL (32.0-37.0); MCV 96.1 fL (80.0-97.0); Mean Platelet Volume 11.4 fL (9.5-12.2); Platelet Count 265 X 10*3/uL (140-440); RBC 4.56 X 10*6/uL (4.10-5.20); RDW 13.2 % (11.5-14.5); WBC 12.35 X 10*3/uL (4.50-10.00)
[2021-05-19 12:40] LABS: % Iron Saturation 70.45 (12.00-45.00); ALT 25 U/L (8-44); AST 19 U/L (13-35); African American GFR (CKD) 133.8 (60.0-200.0); Albumin/Globulin Ratio 1.33 (1.60-3.17); Alkaline Phosphatase 69 U/L (41-126); BUN/Creat Ratio 22.86 Ratio (12.00-20.00); C Reactive Protein <0.4 mg/dL (0.0-0.8); Calcium 9.6 mg/dL (8.7-10.3); Carbon Dioxide 30.2 mmol/L (21.6-31.8); Chloride 101 mmol/L (96-109); Ferritin 320.3 ng/mL (10.0-291.0); Glucose 83 mg/dL (70-110); Iron 174 ug/dL (50-170); Non-African American GFR(CKD) 115.4 (60.0-200.0); Potassium 3.9 mmol/L (3.5-5.5); Sodium 140 mmol/L (135-145); Total Bilirubin 0.4 mg/dL (0.3-1.2); Total Iron Binding Capacity 247 ug/dL (228-460)
== END | disposition home or self-care (01) ==
LOC: LABWHC1 07:22
PROVIDERS: ATTEND Internal Medicine Gastroenterology
DX: K51.80 Other ulcerative colitis without complications (principal); D50.9 Iron deficiency anemia, unspecified
CPT/HCPCS: 36415; 80053; 82728; 83540; 83550; 83993; 85027; 86140

== ENCOUNTER → 2022-04-06 | Outpatient (CLI) | payer MEDICARE, BC ==
[2022-04-06 18:45] LABS: African American GFR (CKD) 131.8 (60.0-200.0); Albumin 3.8 g/dL (3.8-4.9); Albumin/Globulin Ratio 1.01 (1.60-3.17); Anion Gap 12.6 mmol/L (10.00-18.00); BUN/Creat Ratio 15.94 Ratio (12.00-20.00); Blood Urea Nitrogen 11.3 mg/dL (9.0-27.0); C Reactive Protein 0.8 mg/dL (0.00-0.80); Calcium 9.5 mg/dL (8.7-10.3); Carbon Dioxide 22.1 mmol/L (20.0-27.5); Globulin 3.8 g/dL (1.6-3.3); Non-African American GFR(CKD) 113.7 (60.0-200.0); Potassium 4.3 mmol/L (3.5-5.5); Total Bilirubin 0.3 mg/dL (0.30-1.20); Total Protein 7.5 g/dL (6.2-8.2)
[2022-04-06 18:54] LABS: HCT 44.4 % (37.2-46.3); HGB 13.6 g/dL (12.0-15.0); MCH 27.9 pg (27.0-32.0); MCHC 30.6 g/dL (32.0-37.0); MCV 91.2 fL (80.0-97.0); Mean Platelet Volume 13.4 fL (9.5-12.2); NRBC Per 100 WBC 0 /100 WBCS (0.0-0.0); Platelet Count 270 X 10*3/uL (140-440); RBC 4.87 X 10*6/uL (4.10-5.20); RDW 13.2 % (11.5-14.5)
== END | disposition home or self-care (01) ==
LOC: LABWHC1 10:27
PROVIDERS: ATTEND Internal Medicine Gastroenterology
DX: K51.80 Other ulcerative colitis without complications (principal); D84.9 Immunodeficiency, unspecified
CPT/HCPCS: 36415; 80053; 85027; 86140

== ENCOUNTER → 2022-04-27 | Outpatient (CLI) | payer MEDICARE, BC ==
[2022-04-27 19:26] LABS: % Iron Saturation 18.23 (12.00-45.00); Ferritin 48.4 ng/mL (10.0-291.0)
== END | disposition home or self-care (01) ==
LOC: LABWHC1 10:47
PROVIDERS: ATTEND Internal Medicine Gastroenterology
DX: K51.80 Other ulcerative colitis without complications (principal); R53.83 Other fatigue; D84.9 Immunodeficiency, unspecified; Z93.0 Tracheostomy status
CPT/HCPCS: 36415; 82306; 82728; 82746; 82784; 83516; 83540; 83550; 84443

== ENCOUNTER → 2023-04-26 | Outpatient (CLI) | payer MEDICARE, BC ==
[2023-04-26 15:58] LABS: HCT 44.7 % (37.2-46.3); HGB 14.4 d/dL (12.0-15.0); MCH 28.9 pg (27.0-32.0); MCHC 32.2 d/dL (32.0-37.0); MCV 89.6 FL (80.0-97.0); Mean Platelet Volume 12.4 FL (9.5-12.2); NRBC Per 100 WBC 0 X 10*3/uL (0.00-0.01); Platelet Count 312 X 10*3/uL (140-440); RBC 4.99 X 10*6/uL (4.10-5.20); RDW 13.3 % (11.5-14.5); WBC 16.71 X 10*3/uL (4.50-10.00)
[2023-04-26 16:17] LABS: ALT 25 U/L (8-44); AST 31 U/L (13-35); Albumin 3.8 d/dL (3.8-4.9); Albumin/Globulin Ratio 0.95 Ratio (1.60-3.17); Alkaline Phosphatase 145 U/L (41-126); BUN/Creat Ratio 21.43 Ratio (12.00-20.00); Calcium 9.3 mg/dL (8.7-10.3); Carbon Dioxide 24.2 mmol/L (21.6-31.8); Chloride 103 mmol/L (96-109); Glucose 77 mg/dL (70-110); Potassium 4.8 mmol/L (3.5-5.5); Sodium 138 mmol/L (135-145); Total Bilirubin 0.3 mg/dL (0.3-1.2); Total Protein 7.8 d/dL (6.2-8.2)
== END | disposition home or self-care (01) ==
LOC: LABWHC1 11:11
PROVIDERS: ATTEND Internal Medicine Gastroenterology
DX: K51.80 Other ulcerative colitis without complications (principal)
CPT/HCPCS: 36415; 80053; 85027; 86140

== ENCOUNTER → 2024-04-25 | Outpatient (CLI) | payer MEDICARE, OTHER ==
[2024-04-25 15:51] LABS: HCT 40.3 % (37.2-46.3); HGB 12.7 g/dL (12.0-15.0); MCH 30.5 pg (27.0-32.0); MCHC 31.5 g/dL (32.0-37.0); MCV 96.6 FL (80.0-97.0); NRBC Per 100 WBC 0 X 10*3/uL (0.00-0.01); Platelet Count 250 X 10*3/uL (140-440); RBC 4.17 X 10*6/uL (4.10-5.20); RDW 13.1 % (11.5-14.5); WBC 4.35 X 10*3/uL (4.50-10.00)
[2024-04-25 16:09] LABS: ALT 27 U/L (8-44); AST 32 U/L (13-35); Albumin 4.2 g/dL (3.8-4.9); Albumin/Globulin Ratio 1.27 Ratio (1.60-3.17); Alkaline Phosphatase 64 U/L (41-126); BUN/Creat Ratio 18.62 Ratio (12.00-20.00); Blood Urea Nitrogen 14.9 mg/dL (9.0-27.0); C Reactive Protein <0.30 mg/dL (0.00-0.80); Calcium 9.2 mg/dL (8.7-10.3); Carbon Dioxide 23.9 mmol/L (21.6-31.8); Chloride 104 mmol/L (96-109); Globulin 3.3 g/dL (1.6-3.3); Glucose 87 mg/dL (70-110); Potassium 4.8 mmol/L (3.5-5.5); Sodium 137 mmol/L (135-145); Total Bilirubin 0.3 mg/dL (0.3-1.2); Total Protein 7.5 g/dL (6.2-8.2)
== END | disposition home or self-care (01) ==
LOC: LABWHC1 08:52
PROVIDERS: ATTEND Family Medicine
DX: Z51.81 Encounter for therapeutic drug level monitoring (principal); K62.5 Hemorrhage of anus and rectum; R19.7 Diarrhea, unspecified
CPT/HCPCS: 36415; 80053; 83993; 85027; 86140